=== PATIENT | male | born 1955 | race American Indian/Alaskan Native ===

== ENCOUNTER 2019-08-02 12:42 | Emergency (ER) | payer OTHER ==
[2019-08-02 12:47] VITALS: BP 136/83
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
== END 2019-08-02 15:05 | disposition left against medical advice (07) ==
LOC: ED 12:42
DX: M54.5 Low back pain (principal)
CPT/HCPCS: 99282